=== PATIENT | male | born 2000 | race Caucasian/White ===

== ENCOUNTER 2022-05-23 16:56 | Emergency (ER) | payer OTHER, SELFPAY ==
[2022-05-23 16:57] VITALS: BP 136/85; PULSE 72; RESP 16; TEMP 37.1; O2SAT 97; BMI 27.8
--- NOTE | 2022-05-23 17:22 | EKG12_ITS ---
Test Reason : CP Blood Pressure : / mmHG Vent. Rate : 067 BPM Atrial Rate : 067 BPM P-R Int : 140 ms QRS Dur : 084 ms QT Int : 410 ms P-R-T Axes : 039 013 040 degrees QTc Int : 433 ms Normal sinus rhythm with sinus arrhythmia Normal ECG Confirmed by ERMA ELIAS, KEN ([id number]), image editor NAFISA BEAR ([id number]) on 05/24/2022 2:22:30 PM Referred By: DEXTER/WALTER Confirmed By:KEN RITCHIE MD
--- NOTE | 2022-05-23 17:35 | RAD_ITS ---
STUDY: X-RAY CHEST REASON FOR EXAM: Male, 22 years old. CHEST PAIN chest pain TECHNIQUE: XR Chest 1 View COMPARISON: None FINDINGS: There is no demonstrated pleural abnormality. Normal size heart. Normal mediastinum and yash. Normal visualized pulmonary arteries. Normal visualized aortic arch and descending thoracic aorta. Normal visualized thoracic spine. Normal visualized ribs, clavicles, and shoulders. There is no demonstrated abnormality of the visualized soft tissue structures of the upper abdomen. RAD/Chest 1 View (Portable) IMPRESSION: There are no acute findings. Electronically Signed: Devyn Davidson MD at 18:09 EDT ,
--- NOTE | 2022-05-23 17:36 | EX.ED.DYSGE1 ---
HPI History of Present Illness Chief Complaint: Syncope Narrative Narrative: 22-year-old male presenting for evaluation of near syncope. Patient states that about 10 AM this morning he started to feel as if he was going to faint. He states he told some coworkers and that helped him inside. He states he never lost consciousness but did not help to get inside. 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 Patient states he drinks about 38 to 45 ounces of water a day. Patient states he went home after this and was sitting and started to feel lightheaded again. He states this made him feel like he was going to lay down. After laying down he had some chest discomfort which he cannot describe but he describes it as very mild. He had an episode of near syncope again and presents for evaluation. Patient denies any medical history. He denies current chest pain or shortness of breath. No fever or chills. No history of sudden in the family. Patient states that he has been eating normally recently. Is making normal urine and stool. He states he has been drinking more water throughout the day currently. PFSH PFSH Allergy/AdvReac Type Severity Reaction Status Date / Time No Known Allergies Allergy Verified 05/23/22 17:01 Social History Smoking Status: Unknown if ever smoked ROS ROS ED Constitutional Constitutional ED: Denies chills or fever(s) Eyes Eyes: Reports other; Denies change in vision ENT ENT ED: Denies rhinorrhea or sore throat Cardiovascular Cardiovascular: Reports chest pain and other Details: Near syncope Respiratory/Chest Respiratory/Chest: Denies cough or dyspnea Gastrointestinal Gastrointestinal: Denies abdominal pain, constipation, nausea or vomiting Genitourinary Genitourinary ED: Denies dysuria or hematuria Musculoskeletal Musculoskeletal: Denies arthralgias or back pain Integumentary Denies abscess or Abrasions Neurologic Neurologic: Denies headache(s) or paresthesias Psychiatric Psychiatric: Denies anxiety or depression EXAM Physical Exam Const Vital Signs: 05/23/22 16:57 05/23/22 17:08 05/23/22 17:24 Temperature 98.8 F Temperature Source Temporal Pulse Rate 72 Pulse Rate [Lying] Pulse Rate [Sitting (for 1 minute prior to obtaining)] Pulse Rate [Standing (for 1 minute prior to obtaining)] Respiratory Rate 16 Respiratory Effort Normal Non-Labored Respiratory Pattern Normal Blood Pressure 136/85 H Blood Pressure [Lying] Blood Pressure [Sitting (for 1 minute prior to obtaining)] Blood Pressure [Standing (for 1 minute prior to obtaining)] Blood Pressure Mean 102 Blood Pressure Mean [Lying] Blood Pressure Mean [Sitting (for 1 minute prior to obtaining)] Blood Pressure Mean [Standing (for 1 minute prior to obtaining)] Pulse Ox 97 Oxygen Delivery Method Room Air Room Air 05/23/22 17:59 Temperature Temperature Source Pulse Rate Pulse Rate [Lying] 58 L Pulse Rate [Sitting (for 1 minute prior to obtaining)] 61 Pulse Rate [Standing (for 1 minute prior to obtaining)] 67 Respiratory Rate Respiratory Effort Respiratory Pattern Blood Pressure Blood Pressure [Lying] 110/67 Blood Pressure [Sitting (for 1 minute prior to obtaining)] 112/71 Blood Pressure [Standing (for 1 minute prior to obtaining)] 113/85 H Blood Pressure Mean Blood Pressure Mean [Lying] 81 Blood Pressure Mean [Sitting (for 1 minute prior to obtaining)] 84 Blood Pressure Mean [Standing (for 1 minute prior to obtaining)] 94 Pulse Ox Oxygen Delivery Method Positive well nourished General Appearance ED: NAD; Negative for pallor HEENT Reports moist mucous membranes and dry mucous membranes Negative for trauma Mouth ED: Yes dry mucous membranes Mouth: dry mucous membranes Eyes PERRL and EOMs intact bilaterally General Eye ED: Negative for pale conjunctiva or scleral icterus Chest Wall inspection of chest normal and palpation of chest normal Resp normal respiratory effort and clear to auscultation bilaterally Auscultation: Negative for rales, rhonchi or wheezes Cardio regular rate and regular rhythm GI normal to inspection, nondistended, normoactive bowel sounds Auscultation: normoactive bowel sounds Palpation: soft; Negative for tender or guarding Extremity normal to inspection General Extremety ED: Negative for edema or tenderness General Extremity: Negative for edema Neuro oriented x3 and CN's II-XII intact bilaterally Sensorium / Orientation: alert Motor Exam: strength 5/5 throughout Psych mental status grossly normal Skin no rashes or lesions noted and no wounds General Skin Exam: Negative for jaundice or pallor MDM MDM MDM Narrative Medical decision making narrative: 22-year-old male presenting with near syncopal episodes x3 today. He states he feels well now. He is able to ambulate into the emergency room. He reports he has been drinking more water throughout the day. Patient had some mild discomfort of the chest. This is the extent as to how he can describe it. He does not have any cardiac history. He does not have any risk factors. No history of sudden cardiac in the family. Patient denies any drugs, alcohol. Patient does report that he does not drink a lot of water throughout the day and he does work in the heat. Patient presenting with a vague chest discomfort retrosternally. He has no cardiac risk factors. He is 22-year-old young and has been healthy. He is PERC negative. Initially gives a story of possible dehydration however his CBC and BMP are within normal limits. He does not appear to be dehydrated. His CPK is 248. High-sensitivity troponin is 3. Chest x-ray on my interpretation shows no acute cardiopulmonary process and the radiologist agree. EKG is a normal sinus rhythm at a ventricular rate of 57 bpm. There is a slight sinus arrhythmia. No ST elevation or depression. Orthostatic vitals are negative. It is unclear the etiology of his symptoms but I did not find any abnormalities with his blood work, imaging, orthostatics, EKG. I feel he safe to follow-up outpatient. I will give him cardiology referral. Impression: 1. Near syncope 2. Chest pain noncardiac Lab Data Attestation: I reviewed the patient's lab results. Labs: Laboratory Results - last 24 hr 05/23/22 05/23/22 17:43 17:43 WBC 6.7 RBC 4.77 Hgb 15.1 Hct 43.3 MCV 90.8 MCH 31.7 MCHC 34.9 RDW Std Deviation 38.3 RDW Coeff of Amna 11.5 L Plt Count 279 MPV 8.7 Immature Gran % (Auto) 0.300 Neut % (Auto) 58.0 Lymph % (Auto) 29.2 Greer % (Auto) 9.7 Eos % (Auto) 2.2 Baso % (Auto) 0.6 Absolute Neuts (auto) 3.9 Absolute Lymphs (auto) 1.95 Nucleated RBC % 0 Sodium 139 Potassium 3.9 Chloride 107 Carbon Dioxide 28.0 Anion Gap 4 L BUN 16 Creatinine 1.04 Estim Creat Clear Calc 116.65 Est GFR (MDRD) Af Amer 113 Est GFR (MDRD) Non-Af 93 BUN/Creatinine Ratio 15.4 Glucose 105 Calcium 8.7 Total Creatine Kinase 248 Troponin I High Sens < 3 L Radiography Diagnostic Testing: Clinical Impression(s) from Imaging Studies Chest X-Ray 05/23/22 17:35 IMPRESSION: There are no acute findings. Electronically Signed: Devyn Davidson MD at 18:09 EDT Reading Location ID and State: [facility]– [place] / [place] , Service support , Discharge Plan Triage Chief Complaint: Syncope Other Complaint: Chest Pain ED Provider: Go West Dx/Rx/DC Orders Instructions: ED Chest Pain, Uncertain Cause, ED Fainting, Uncertain Cause Primary Care Provider: Paco Mayo,Out of Referrals: Viet Parker MD [STAFF PHYSICIAN] - 3-5 Days Paco Mayo,Out of [Primary Care Provider] - Disposition Disposition: Home, Self Care
[2022-05-23] MEDS: 0.9% Normal Saline 1,000 ML 1000 ML IV ×2 (17:42→18:15)
[2022-05-23 17:56] LABS: Absolute Lymphocyte Count 1.95 X10^3/uL (0.83-4.51); Absolute Neutrophil Count 3.9 X10^3/uL (2.0-7.7); Basophil# 0.04 X10^3/uL; Basophil% 0.6 % (0-1); Eosinophil# 0.15 X10^3/uL; Eosinophils% 2.2 % (0-5); Hematocrit 43.3 % (40-54); Hemoglobin 15.1 g/dL (13.0-16.5); Lymphocyte # 1.95 X10^3/ul (0.83-4.51); Lymphocyte % 29.2 % (19-41); Mean Corp Hgb Conc 34.9 g/dL (32-36); Mean Corpuscular Hgb 31.7 pg (27.0-32.0); Mean Corpuscular Volume 90.8 fL (80-94); Mean Platelet Vol. 8.7 fl (6.2-12.0); Monocyte# 0.65 X10^3/uL; Monocyte% 9.7 % (0-10); NRBC Flagged by Analyzer 0 % (0-5); Neutrophil # 3.87 X10^3/uL (2.7-7.7); Platelet Count 279 K/mm3 (150-450); RBC Distribution Width CV 11.5 % (11.6-14.6); RBC Distribution Width SD 38.3 fl (35.1-43.9); Red Blood Count 4.77 M/mm3 (4.6-6.2); White Blood Count 6.7 K/mm3 (4.4-11.0)
[2022-05-23 17:59] VITALS: BP 110/67; BP 112/71; BP 113/85; PULSE 58; PULSE 61; PULSE 67
[2022-05-23 18:08] LABS: Anion Gap 4 (5-15); BUN 16 mg/dL (7-18); BUN/Creat Ratio 15.4 RATIO (10-20); CPK Total, Creatine Kinase 248 U/L (39-308); Calcium,Total 8.7 mg/dL (8.5-10.1); Chloride 107 mmol/L (98-107); Creatinine, Serum 1.04 mg/dL (0.70-1.30); EST Glomerular Filtration Rate 93 mL/min (>60); Est Glom Filt Rate - Afr Amer 113 mL/min (>60); Estimated Creatinine Clearance 116.65 ml/min; Glucose 105 mg/dL (74-106); Potassium 3.9 mmol/L (3.5-5.1); Sodium Level 139 mmol/L (136-145); Troponin-I HS (w/2H Reflex) < 3 pg/mL (3.0-78.0)
[2022-05-23 19:37] VITALS: BP 124/67; PULSE 82; RESP 16; O2SAT 98
[2022-05-23 19:48] LABS: Reflex Troponin-HS? (from REC) Y
== END 2022-05-23 19:37 | disposition home or self-care (01) ==
PROVIDERS: Emergency Provider Student in an Organized Health Care Education/Training Program; Visit Provider Student in an Organized Health Care Education/Training Program
DX: R55 Syncope and collapse (principal); R07.89 Other chest pain
CPT/HCPCS: 71045; 80048; 82550; 84484; 85025; 93005; 96360; 96361; 99285; J7030; A4216

== ENCOUNTER → 2025-05-21 | Outpatient (CLI) | payer BC, SELFPAY ==
[2025-05-21 15:21] LABS: Hematocrit 44.3 % (40-54); Hemoglobin 15.3 g/dL (13.0-16.5); Immature Granulocytes Count 0.020 X10^3/uL (0.0-0.0); Mean Corp Hgb Conc 34.5 g/dL (32-36); Mean Corpuscular Volume 90.0 fL (80-94); Mean Platelet Vol. 9.1 fl (6.2-12.0); NRBC Flagged by Analyzer 0 % (0-5); Platelet Count 295 K/mm3 (150-450); RBC Distribution Width CV 12.1 % (11.6-14.6); RBC Distribution Width SD 39.7 fl (35.1-43.9); Red Blood Count 4.92 M/mm3 (4.6-6.2); White Blood Count 7.0 K/mm3 (4.4-11.0)
[2025-05-21 16:31] LABS: AST(SGOT) 36 U/L (<=37); Alanine Aminotransfer ALT/SGPT 37 U/L (<=46); Albumin, Serum 4.6 g/dL (3.5-5.0); Alkaline Phosphatase 81 U/L (40-129); Anion Gap 11 (5-15); BUN 21 mg/dL (4-19); BUN/Creat Ratio 18.2 RATIO (10-20); Calcium,Total 9.5 mg/dL (7.6-11.0); Carbon Dioxide 25.0 mmol/L (21.0-32.0); Chloride 104 mmol/L (98-108); Cholesterol 184 mg/dL (<=200); Globulin 2.8 g/dL (2.2-4.2); Glucose 91 mg/dL (70-99); Low Density Lipoprotein Calc. 125 mg/dL; Potassium 4.2 mmol/L (3.3-5.1); Triglycerides 97 mg/dL; Very Low Density Lipoprotein 19 mg/dL (5-40); Vitamin D,25 Hydroxy 44.7 ng/mL (30-100); cholesterol:hdl ratio screen 4.60
== END | disposition home or self-care (01) ==
LOC: MTLAB 12:37
PROVIDERS: PCP Nurse Practitioner Family; Referring Provider Nurse Practitioner Family; Visit Provider Nurse Practitioner Family
DX: Z00.01 Encounter for general adult medical examination with abnormal findings (principal); E55.9 Vitamin D deficiency, unspecified
CPT/HCPCS: 36415; 80053; 80061; 82306; 85025